=== PATIENT | female | born 1965 | race Two or more races ===

== ENCOUNTER 2018-11-25 16:18 | Observation (INO) | payer BC ==
[2018-11-25] MEDS ORDERED: ASPIRIN 81 MG CHEWABLE TAB PO ONE (16:31)
[2018-11-25 17:00] LABS: PLATELET COUNT 274 10^3/uL (150-400)
[2018-11-25 17:16] LABS: INR 0.92 (0.83-1.16)
--- NOTE | 2018-11-25 17:40 | EDPHY ---
H & P Time Seen by Provider: 11/25/18 16:31 HPI/ROS: HPI Chest pressure, shortness of breath. 53-year-old female by private vehicle with her . The patient was sent from the [facility]. She presented there with complaint of a sensation like an elephant sitting on her chest on and off for the last 2-3 days with associated shortness of breath, much worse with exertion. Currently sitting in front of me she denies any chest pain or discomfort or shortness of breath at rest. She has a history of hypertension. Otherwise no significant coronary artery disease risk factors. ROS: Constitutional: No fever, no chills. No weakness. Eyes: No discharge. No changes in vision. ENT: No sore throat. No nasal congestion or rhinorrhea. Respiratory: No cough. As above. Cardiac: As above, no palpitations. Gastrointestinal: No abdominal pain, no vomiting, no diarrhea. Genitourinary: No hematuria. No dysuria or increased frequency with urination. Musculoskeletal: No back pain. No neck pain. No myalgias or arthralgias. Skin: No rashes. Neurological: No headache. No focal weakness or altered sensation. Past medical history: No significant past medical history. Social history: Nonsmoker. Drinks alcohol socially. Here with her . Physical Exam: General Appearance: Alert, no distress, mildly anxious. This patient is responding to questions appropriately and in full sentences. This patient appears well-hydrated and well-nourished. Eyes: Pupils equal and round no pallor or injection. No lid edema, erythema or injection. Respiratory: There are no retractions, lungs are clear to auscultation with good air movement bilaterally. Cardiovascular: Regular rate and rhythm. No murmur appreciated. Gastrointestinal: Abdomen is soft and nontender, no masses, bowel sounds normal. No focal tenderness at McBurney's point. No Ortega sign. Neurological: Motor sensory function is grossly intact. Cranial nerves are normal. Gait is normal. Skin: Warm and dry, no rashes. Extremities are symmetrical. All joints range without pain or impingement. Psychiatric: No agitation. No depression. Database: EKG: EKG time is 4:39 p.m.; EKG shows a narrow complex normal sinus rhythm with a ventricular rate of 60. The IA, QRS, QT intervals are within normal limits. There are no ST-T wave changes indicative of ischemic or injury pattern. No evidence of right heart strain. Interpreted by me. Imaging: Chest x-ray AP portable: The cardiac mediastinal silhouette is normal. No evidence of infiltrate or pneumothorax. No acute cardiopulmonary disease process noted. Interpreted by me. Procedures: Emergency department course: The patient received 324 mg of chewed aspirin at urgent care. Currently she does not have any chest pain or discomfort. Triage vital signs reviewed. She is moderately hypertensive. Vital signs are otherwise normal. EKG obtained and reviewed by myself. 5:40 p.m., the patient was re-evaluated, results of diagnostic workup in the emergency department discussed with her and her . Her story is concerning. I discussed admission. She endorses. Hospitalist paged. 5:45 p.m., discussed case with on-call hospitalist Dr. Peter Jaramillo. Patient accepted for admission to telemetry observation. Cardiology to be consult by hospitalist service. Patient admitted in stable condition. Differential Diagnosis: The differential diagnosis on this patient includes but is not limited to acute coronary syndrome, esophageal spasm, pleurisy. Aortic dissection, myocarditis, pericarditis, pulmonary embolism, pneumonia, pneumothorax unlikely. This represents a partial list of diagnoses considered. These considerations are based on history, physical exam, past history, reassessment and diagnostic testing. Smoking Status: Never smoked Constitutional: Initial Vital Signs Temperature (C) 36.6 C 11/25/18 16:25 Heart Rate 69 11/25/18 16:25 Respiratory Rate 16 11/25/18 16:25 Blood Pressure 164/90 H 11/25/18 16:25 O2 Sat (%) 98 11/25/18 16:25 O2 Delivery Mode Room Air Allergies/Adverse Reactions: No Known Allergies Allergy (Unverified 11/25/18 16:24) Home Medications: Medication Instructions Recorded Levothyroxine [Synthroid 88 mcg 88 mcg PO DAILY06 11/25/18 (*)] Losartan Potassium 11/25/18 Medical Decision Making - Diagnostics Imaging Results: Imaging Impressions Chest X-Ray 11/25/18 16:31 Impression: Normal. - Data Points Laboratory Results: Laboratory Results 11/25/18 16:48 11/25/18 16:48 11/25/18 11/25/18 11/25/18 17:32 16:56 16:48 WBC RBC Hgb Hct MCV MCH MCHC RDW Plt Count MPV Neut % (Auto) Lymph % (Auto) [place] % (Auto) Eos % (Auto) Baso % (Auto) Nucleat RBC Rel Count Absolute Neuts (auto) Absolute Lymphs (auto) Absolute Monos (auto) Absolute Eos (auto) Absolute Basos (auto) Absolute Nucleated RBC Immature Gran % Immature Gran # PT INR APTT D-Dimer Sodium 137 mEq/L mEq/L (135-145) Potassium 4.1 mEq/L mEq/L (3.5-5.2) Chloride 103 mEq/L mEq/L (97-110) Carbon Dioxide 25 mEq/l mEq/l (22-31) Anion Gap 9 mEq/L mEq/L (6-14) BUN 18 mg/dL mg/dL (7-23) Creatinine 0.8 mg/dL mg/dL (0.6-1.0) Estimated GFR > 60 Glucose 101 mg/dL H mg/dL (70-100) Calcium 9.5 mg/dL mg/dL (8.5-10.4) POC Troponin I 0.01 ng/mL ng/mL (0.00-0.08) NT-Pro-B Natriuret Pep 45 pg/mL pg/mL (0-125) TSH Pending 11/25/18 11/25/18 16:48 16:48 WBC 8.67 10^3/uL 10^3/uL (3.80-9.50) RBC 4.48 10^6/uL 10^6/uL (4.18-5.33) Hgb 14.2 g/dL g/dL (12.6-16.3) Hct 43.0 % % (38.0-47.0) MCV 96.0 fL fL (81.5-99.8) MCH 31.7 pg pg (27.9-34.1) MCHC 33.0 g/dL g/dL (32.4-36.7) RDW 12.5 % % (11.5-15.2) Plt Count 274 10^3/uL 10^3/uL (150-400) MPV 9.3 fL fL (8.7-11.7) Neut % (Auto) 67.7 % % (39.3-74.2) Lymph % (Auto) 22.7 % % (15.0-45.0) [place] % (Auto) 6.8 % % (4.5-13.0) Eos % (Auto) 1.7 % % (0.6-7.6) Baso % (Auto) 0.8 % % (0.3-1.7) Nucleat RBC Rel Count 0.0 % % (0.0-0.2) Absolute Neuts (auto) 5.86 10^3/uL 10^3/uL (1.70-6.50) Absolute Lymphs (auto) 1.97 10^3/uL 10^3/uL (1.00-3.00) Absolute Monos (auto) 0.59 10^3/uL 10^3/uL (0.30-0.80) Absolute Eos (auto) 0.15 10^3/uL 10^3/uL (0.03-0.40) Absolute Basos (auto) 0.07 10^3/uL 10^3/uL (0.02-0.10) Absolute Nucleated RBC 0.00 10^3/uL 10^3/uL (0-0.01) Immature Gran % 0.3 % % (0.0-1.1) Immature Gran # 0.03 10^3/uL 10^3/uL (0.00-0.10) PT 12.0 SEC SEC (12.0-15.0) INR 0.92 (0.83-1.16) APTT 24.9 SEC SEC (23.0-38.0) D-Dimer 0.30 ug/mLFEU ug/mLFEU (0.00-0.50) Sodium Potassium Chloride Carbon Dioxide Anion Gap BUN Creatinine Estimated GFR Glucose Calcium POC Troponin I NT-Pro-B Natriuret Pep TSH Medications Given: Discontinued Medications Aspirin (Aspirin) 324 mg PO EDNOW ONE Stop: 11/25/18 16:32 Last Admin: 11/25/18 17:00 Dose: Not Given Point of Care Test Results: Chemistry 11/25/18 16:56 POC Troponin I 0.01 ng/mL ng/mL (0.00-0.08) Departure - Departure Disposition: [facility] Inpatient Acute Clinical Impression: Chest pain Referrals: Amy Youssef MD [Primary Care Provider] - As per Instructions
[2018-11-25] MEDS ORDERED: NITROGLYCERIN 0.4 MG BTL SL PRN (21:39)
[2018-11-25] MEDS ORDERED: ONDANSETRON 4 MG/2 ML VIAL IVP PRN (21:39)
[2018-11-25] MEDS ORDERED: ACETAMINOPHEN 325 MG TAB PO PRN (21:39)
[2018-11-25] MEDS ORDERED: ONDANSETRON DISINTEGRATING 4 MG TAB PO PRN (21:39)
[2018-11-25] MEDS ORDERED: hydrALAZINE 10 MG TAB PO PRN (21:40)
[2018-11-25] MEDS ORDERED: ALBUTEROL 60 PUFFS/8 GM MDI IH PRN (21:41)
[2018-11-25] MEDS ORDERED: LOSARTAN POTASSIUM 50 MG TAB PO SCH (21:45)
--- NOTE | 2018-11-25 21:55 | PDGENHP ---
History and Physical - Chief Complaint chest pain - History of Present Illness 53 yo F with PMH of HTN, hypothyroid presenting with several days of chest pain. She notes the pain is substernal and has been intermittent for at least the last several days. It is worse with exertion. She notes she has had exertional shortness of breath for at least the last several weeks, perhaps as long as several months. It has increased to the point where she is no longer able to do the exercise she used to do regularly, like run on the treadmill. She initially was attributing this to sinus infection or cold sxs which she has had persistently since . She has been seen by her PCP several times as well as ENT and urgent care and told she was having a viral illness essentially. She notes that when she attempted to exercise for the last couple of days she was very short of breath and had associated chest and neck tightness and pain and became afraid that this was something more significant than a viral illness and came to ER for further evaluation. She has never had similar sxs in the past. History Information - Allergies/Home Medication List Allergies/Adverse Reactions: No Known Allergies Allergy (Verified 11/25/18 18:51) Home Medications: Albuterol [Proventil Inhaler HFA (*)] 2 puffs IH Q4 PRN 11/25/18 [Last Taken Unknown] Azelastine [Astelin Nasal [place] (RX)] 2 sprays EACHNARE BID 11/25/18 [Last Taken 11/25/18 09:00] Herbals/Supplements -Info Only 1 ea PO DAILY 11/25/18 [Last Taken Unknown] Ipratropium 0.06% Nasal [Atrovent 0.06% Nasal (RX)] 2 sprays EACHNARE DAILY [Last Taken 11/24/18] Levothyroxine [Synthroid 88 mcg (*)] 88 mcg PO DAILY06 11/25/18 [Last Taken ] Losartan Potassium [Cozaar 50 mg (*)] 50 mg PO HS 11/25/18 [Last Taken 11/24/18] I have personally reviewed and updated: family history, medical history, social history, surgical history - Past Medical History hypertension Additional medical history: hypothyroid - Surgical History Reports: appendectomy, cholecystectomy Additional surgical history: shoulder surgery. nose surgery - Family History Positive for: cancer (mother of lung cancer at age 53), CAD (maternal GM with ND) Additional family history: father with cardiomyopathy. 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 Review of Systems Review of Systems: ROS: 10pt was reviewed & negative except for what was stated in HPI & below Physical Exam Physical Exam: Temp Pulse Resp BP Pulse Ox 36.6 C 58 L 16 187/96 H 96 11/25/18 19:48 11/25/18 19:48 11/25/18 19:48 11/25/18 19:48 11/25/18 19:48 Constitutional: no apparent distress, appears nourished Eyes: PERRL, anicteric sclera Ears, Nose, Mouth, Throat: moist mucous membranes, hearing normal Cardiovascular: regular rate and rhythym, no murmur, rub, or gallop, No edema Respiratory: no respiratory distress, no rales or rhonchi Gastrointestinal: normoactive bowel sounds, soft, non-tender abdomen Genitourinary: no bladder tenderness Skin: warm, normal color Musculoskeletal: full muscle strength Neurologic: AAOx3 Psychiatric: interacting appropriately, not anxious, not encephalopathic Lab Data & Imaging Review 11/25/18 16:48 11/25/18 16:48 WBC 8.67 10^3/uL (3.80-9.50) 11/25/18 16:48 RBC 4.48 10^6/uL (4.18-5.33) 11/25/18 16:48 Hgb 14.2 g/dL (12.6-16.3) 11/25/18 16:48 Hct 43.0 % (38.0-47.0) 11/25/18 16:48 MCV 96.0 fL (81.5-99.8) 11/25/18 16:48 MCH 31.7 pg (27.9-34.1) 11/25/18 16:48 MCHC 33.0 g/dL (32.4-36.7) 11/25/18 16:48 RDW 12.5 % (11.5-15.2) 11/25/18 16:48 Plt Count 274 10^3/uL (150-400) 11/25/18 16:48 MPV 9.3 fL (8.7-11.7) 11/25/18 16:48 Neut % (Auto) 67.7 % (39.3-74.2) 11/25/18 16:48 Lymph % (Auto) 22.7 % (15.0-45.0) 11/25/18 16:48 [place] % (Auto) 6.8 % (4.5-13.0) 11/25/18 16:48 Eos % (Auto) 1.7 % (0.6-7.6) 11/25/18 16:48 Baso % (Auto) 0.8 % (0.3-1.7) 11/25/18 16:48 Nucleat RBC Rel Count 0.0 % (0.0-0.2) 11/25/18 16:48 Absolute Neuts (auto) 5.86 10^3/uL (1.70-6.50) 11/25/18 16:48 Absolute Lymphs (auto) 1.97 10^3/uL (1.00-3.00) 11/25/18 16:48 Absolute Monos (auto) 0.59 10^3/uL (0.30-0.80) 11/25/18 16:48 Absolute Eos (auto) 0.15 10^3/uL (0.03-0.40) 11/25/18 16:48 Absolute Basos (auto) 0.07 10^3/uL (0.02-0.10) 11/25/18 16:48 Absolute Nucleated RBC 0.00 10^3/uL (0-0.01) 11/25/18 16:48 Immature Gran % 0.3 % (0.0-1.1) 11/25/18 16:48 Immature Gran # 0.03 10^3/uL (0.00-0.10) 11/25/18 16:48 PT 12.0 SEC (12.0-15.0) 11/25/18 16:48 INR 0.92 (0.83-1.16) 11/25/18 16:48 APTT 24.9 SEC (23.0-38.0) 11/25/18 16:48 D-Dimer 0.30 ug/mLFEU (0.00-0.50) 11/25/18 16:48 Sodium 137 mEq/L (135-145) 11/25/18 16:48 Potassium 4.1 mEq/L (3.5-5.2) 11/25/18 16:48 Chloride 103 mEq/L (97-110) 11/25/18 16:48 Carbon Dioxide 25 mEq/l (22-31) 11/25/18 16:48 Anion Gap 9 mEq/L (6-14) 11/25/18 16:48 BUN 18 mg/dL (7-23) 11/25/18 16:48 Creatinine 0.8 mg/dL (0.6-1.0) 11/25/18 16:48 Estimated GFR > 60 11/25/18 16:48 Glucose 101 mg/dL (70-100) H 11/25/18 16:48 Calcium 9.5 mg/dL (8.5-10.4) 11/25/18 16:48 POC Troponin I 0.01 ng/mL (0.00-0.08) 11/25/18 16:56 NT-Pro-B Natriuret Pep 45 pg/mL (0-125) 11/25/18 16:48 TSH 3.140 uIU/mL (0.465-4.680) 11/25/18 17:32 Visualized and Interpreted Chest x-ray results: Yes Chest X-Ray results: no infiltrate Visualized and Interpreted EKG results: Yes EKG Interpretation: Positive for: normal sinsus rhythm EKG additional interpertation: ST flattening Assessment & Plan Assessment: Chest pain (Acute) 53 yo F with PMH of HTN presenting with exertional chest pain # exertional chest pain: concerning hx with exertional chest pain associated with sob though minimal RFs for CAD other than HTN. Initial ECG non diagnostic and troponin negative. Plan for monitoring on tele, serial ecg/trops overnight. Will get stress test with NM in am as well as lipid panel and A1c for further risk stratification # HTN: has been uncontrolled since arrival however in the setting of anxiety, will continue to monitor, continue losartan at home dose for now, if BP remains elevated may require increased dose of home medication # hypothyroid: continue synthroid # sinus sxs: afebrile, has been evaluated by ENT, will continue nasal sprays # observation status Patient new to my care. Old records reviewed and summarized as above. Care plan reviewed with ER doctor as above. Further hx obtained from patients present at bedside.
[2018-11-26] MEDS ORDERED: LEVOTHYROXINE 88 MCG TAB PO SCH (06:00)
[2018-11-26] MEDS ORDERED: AZELASTINE NASAL MDI EACHNARE SCH (09:00)
[2018-11-26] MEDS ORDERED: ASPIRIN 325 MG TAB PO SCH (09:00)
[2018-11-26] MEDS ORDERED: IPRATROPIUM 0.06% NASAL SPRAY EACHNARE SCH (09:00)
--- NOTE | 2018-11-26 11:09 | CPEKG ---
Test Reason : OPEN Blood Pressure : / mmHG Vent. Rate : 057 BPM Atrial Rate : 058 BPM P-R Int : 155 ms QRS Dur : 081 ms QT Int : 439 ms P-R-T Axes : 052 064 032 degrees QTc Int : 428 ms Sinus rhythm Confirmed by Rocky Pham ([id number]) on 11/26/2018 11:08:48 AM Referred By: Peter Jaramillo Confirmed By:Rocky Pham
--- NOTE | 2018-11-26 13:24 | CPR ---
[f rep st] NONINVASIVE CARDIAC PROCEDURE REPORT DATE OF PROCEDURE: 11/26/2018 PROCEDURE: Exercise nuclear stress test. INDICATION: The patient is a 53-year-old female who presented to the hospital complaining of chest p ressure, shortness of breath, and neck discomfort which is worse with exertion and while under stress . She does have a history of asthma, and this is similar to her asthma discomfort. Her other risk f actors for coronary artery disease include hypertension and a family history with her maternal grandm other having cardiac events in her early 50s. PROCEDURE IN DETAIL: Consent was obtained, and the patient was placed on continuous telemetry. Her resting EKG revealed normal sinus rhythm without any ST-T wave changes to suggest ischemia. The miguel a ent walked on the treadmill for 7-1/2 minutes. She complained of neck pressure which then became [facility] st pressure within the second stage of exertion. Her symptoms resolved within 1 minute of recovery. She remained in normal sinus rhythm without any ST-T wave changes to suggest ischemia throughout the procedure. Her blood pressure at rest was 130/80 and peaked at 172/80. Her blood pressure returned to baseline within 4 minutes of recovery. PLAN: There were no ST-T wave changes to suggest ischemia, but the patient did develop chest pressur e, neck discomfort, and shortness of breath with exertion which resolved quickly with rest. Await nu clear images. /[id number]/MODL
[2018-11-26 15:11] VITALS: BP 129/82
--- NOTE | 2018-11-26 15:23 | ASMTCMCOM ---
CM Note CM Note Notes: 11/26/2018 Case Management Note Pt admitted for chest pain. Met w/pt during rounds today. Per RN ECHO and nuc treadmill planned for today. There are no therapy evals ordered at this time. There are no identified case management d/c needs d/t pt age, marital status, employment status and independence with ADLs prior to admission. Case Management d/c poc: independent with follow up as directed. Case Management available if needs change. Date Signed: 11/26/2018 03:22 PM Electronically Signed By:Rochelle Caruso RN
--- NOTE | 2018-11-26 16:37 | ECHO ---
[email or web address] [address] Main: [phone] Echocardiography Examination Transthoracic Name: MATT JACKSON MR#: [id number] Study Date: 11/26/2018 Study Time: 01:09 PM Date of : 1965 Age: 53 year(s) Height: 157.5 cm (62 in.) Weight: 72.12 kg (159 lb.) BSA: 1.73 m2 Gender: Female Examination: Echo Contrast: Image Quality: Adequate Rhythm: Heart Rate: BP: 138 mmHg/89 mmHg Indication: severe SCHWAB Procedure Staff Referring Physician: [place] Director: Cristy Hart [facility] Reading Physician: Mihai Schwab MD Requesting Provider: Indication: severe SCHWAB Measurements Chambers AV/MV Label Value Normal Value Label Value Normal Value EF lower range (%) 60 % AV PGmean 3 mmHg EF upper range (%) 65 % SANTANA D (continuity eq. 2.3 cm2 IVSd, 2D 1.5 cm (0.6cm - 1.1cm) VTI) LVDd, 2D 4.4 cm (3.9cm - 5.3cm) MV A Vmax 0.54 m/s LVDs, 2D 2.8 cm (2.1cm - 4cm) MV DT 215 ms LVEF visual 60 % MV E' lateral 0.13 m/s LVEF, 2D 67 % (54% - 74%) MV E' mean 0.1 m/s LVEF, MOD2 68 % (55% - 70%) MV E' septal 0.06 m/s LVEF, MOD4 67 % (55% - 70%) MV E Vmax 0.69 m/s LVOT PGmean 3 mmHg MV E/A 1.28 LVOT Vmean 0.79 m/s MV E/E' lateral 5.3 LVOTd 1.9 cm (1.8cm - 2cm) MV E/E' mean 7.26 LVPWd, 2D 0.9 cm MV E/E' septal 11 (0.5 - 1.7) RVDd, 2D 2.5 cm (1.9cm - 3.8cm) MV PHT 0.07 s LA Area, A2C 12.3 cm2 (0cm2 - 20cm2) MV PHT 68 ms LA Volume, A2C 27 ml (22ml - 52ml) MVA PHT 3.2 cm2 LA Volume, A4C 31 ml (22ml - 52ml) TV/PV LA Volume, BP 31 ml (22ml - 52ml) Label Value Normal Value LAD Index, 2D 1.68 cm/m2 RA Pressure 5 mmHg LADs, 2D 2.9 cm (2.7cm - 3.8cm) PV PGmax 3 mmHg Patient: MATT JACKSON Study Date: 11/26/2018 Page 1 of 3 01:09 PM LAESV index, MOD4 17.9 ml/m2 PV Vmax, Caliper 0.81 m/s (0.6m/s - 0.9m/s) Additional Vessels Label Value Normal Value AoAsc 3.1 cm AoRoot, 2D 3.1 cm (1.4cm - 2.6cm) IVC 1.3 cm (1.2cm - 2.3cm) Conclusions (1) Left ventricular systolic ejection fraction was normal (60-65%) - normal wall motion - asymmetric septal hypertrophy is noted (2) Normal RV size and funtion (3) Normal atrial dimensions (4) Mild mitral regurgitation (5) Trileaflet aortic valve without stenosis or insufficiency (6) Mild tricuspid regurgitation - RVSP was normal (7) Grossly normal pulmonic valve (8) Normal aortic dimensions (9) No pericardial effusion, small pleural effusion noted Findings Left Ventricle: Left ventricle is normal in size. Normal global systolic left ventricular function. The EF is visually estimated to be 60 %. EF range is estimated at 60 % - 65 %. There is asymmetrical septal hypertrophy. Left ventricular diastolic function parameters are normal. IVS: The septum is intact. Right Ventricle: Normal size right ventricle. Right ventricular wall thickness is normal. Right ventricular systolic function is normal. Left Atrium: The left atrium is normal in size. IAS: Normal appearing atrial septum. Right Atrium: The right atrium is normal in size. Mitral Valve: Mitral valve appears structurally normal. Mild mitral regurgitation. No mitral valve stenosis. Aortic Valve: Aortic leaflets are structurally normal. No significant aortic valve regurgitation. There is no aortic stenosis. Tricuspid Valve: Tricuspid valve leaflets are structurally normal. Mild tricuspid regurgitation. No tricuspid valve stenosis. Pulmonary artery pressure normal. Pulmonic Valve: Pulmonic leaflets are structurally normal. Trivial pulmonic valve regurgitation is present. Aorta: The aorta is normal. The aortic root size in 2D measures 3.1 cm. The ascending aorta measures 3.1 cm. Aorta Measurements AoRoot, 2D is 3.1 cm. Pulmonary Artery: The pulmonary artery morphology appears normal. IVC: The inferior vena cava is normal in size. The inferior vena cava is normal in size and course. Patient: MATT JACKSON Study Date: 11/26/2018 Page 2 of 3 01:09 PM Pericardium: No pericardial effusion. No pleural effusion present. Exam Details Procedure Ordered: Echo Procedure Status: Routine study Image Quality: Adequate Facility Location: Cardiac Echo 1 (No Signature Object) Patient: MATT JACKSON Study Date: 11/26/2018 Page 3 of 3 01:09 PM [id number]
--- NOTE | 2018-11-27 05:36 | GDS ---
[f rep st] DISCHARGE SUMMARY DISCHARGE DIAGNOSES: 1. Chest pain and shortness of breath, suspect due to viral upper respiratory infection and persiste nt postnasal drip. 2. Asymmetric septal hypertrophy. 3. Sinusitis. HISTORY: The patient is a 53-year-old female, who presents with chest pain and shortness of breath. She has been battling a viral infection predominantly in her sinuses for many months and has failed to recover. She has chest pain and shortness of breath. She gets dyspneic with very minimal activit y such as just walking across the street with chest pain radiating up to her jaw. She had been told many times as an outpatient it was due to persistent viral infection but eventually her primary care doctor sent her to the emergency room to rule out cardiopulmonary etiology of these symptoms. She devi d a complete evaluation, including a myocardial perfusion treadmill stress test that was negative for ischemia. Her D-dimer was negative. Her chest x-ray was negative. Her echocardiogram was unremark able except for incidentally noted asymmetric septal hypertrophy, which I do not think is contributin g to her current symptoms but does need outpatient followup with [facility]. She does report a joya history of cardiomyopathy. She has severe sinus disease and has been following closely with ENT. She has a lot of postnasal dri p. I think this is the etiology of her ongoing symptoms. DISCHARGE MEDICATIONS: Please see computerized record for full detailed list. There were no new med ications given at time of hospital discharge. ADDITIONAL DISCHARGE INSTRUCTIONS: Outpatient followup with [facility] to discuss the abnormal ec hocardiogram. Patient was seen and examined by me on the day of discharge. /[id number]/MODL
--- NOTE | 2018-11-28 23:24 | CPEKG ---
Test Reason : OPEN Blood Pressure : / mmHG Vent. Rate : 060 BPM Atrial Rate : 061 BPM P-R Int : 150 ms QRS Dur : 080 ms QT Int : 432 ms P-R-T Axes : 038 023 023 degrees QTc Int : 432 ms Sinus rhythm Confirmed by Rocky Pham ([id number]) on 11/28/2018 11:24:19 PM Referred By: Peter Jaramillo Confirmed By:Rocky Pham
== END 2018-11-26 18:45 | disposition home or self-care (01) ==
LOC: F2W 19:40
PROVIDERS: ADMIT Internal Medicine; ATTEND Internal Medicine
DX: R07.9 Chest pain, unspecified (principal); R06.02 Shortness of breath; R09.82 Postnasal drip; J32.9 Chronic sinusitis, unspecified; I10 Essential (primary) hypertension; E03.9 Hypothyroidism, unspecified; Z80.1 Family history of malignant neoplasm of trachea, bronchus and lung
CPT/HCPCS: 71045; 78452; 93005; 93017; 93306; A9500; G0378; 84484-ER